=== PATIENT | female | born 1995 | race Caucasian/White ===

== ENCOUNTER → 2021-04-01 03:14 | Outpatient (CLI) | payer OTHER, SELFPAY ==
[2021-04-01 20:47] LABS: SARS-CoV-2 RNA PCR Negative
== END ==
PROVIDERS: Visit Provider Obstetrics & Gynecology Gynecologic Oncology
DX: Z01.812 Encounter for preprocedural laboratory examination (principal); Z20.822 Contact with and (suspected) exposure to COVID-19
CPT/HCPCS: C9803; U0003; U0005

== ENCOUNTER 2021-04-01 08:14 | Outpatient (CLI) | payer OTHER, SELFPAY ==
[2021-04-01 08:47] LABS: Basophils Percent Auto 0.4 % (0.2-1.2); Eosinophils Absolute Auto 0.2 K/mm3 (0-0.3); Eosinophils Percent Auto 4.3 % (0-4.4); Hematocrit 39.9 % (37.0-47.0); Immature Granulocyte Absolute 0.02 K/mm3 (0.00-0.031); Immature Granulocyte Percent A 0.4 % (0-0.5); Lymphocytes Absolute Auto 1.42 K/mm3 (0.9-3.2); Lymphocytes Percent Auto 27.6 % (18.3-44.2); Mean Corpuscular HGB Conc 32.6 g/dl (32-36); Mean Corpuscular Hemoglobin 30.2 pg (26-34); Mean Corpuscular Volume 92.6 fl (80-100); Mean Platelet Volume 9.5 fl (7.4-10.4); Monocytes Absolute Auto 0.6 K/mm3 (0.1-0.6); Monocytes Percent Auto 10.7 % (2.6-8.5); Neutrophils Absolute Auto 2.9 K/mm3 (1.3-6.7); Neutrophils Percent Auto 56.6 % (45.5-73.1); Platelet Count Result 222 k/mm3 (150-375); Red Blood Count 4.31 M/mm3 (4.2-5.4); Red Cell Distribution Width 13.6 % (11.5-14.5); White Blood Count 5.1 K/mm3 (4.5-10.0)
== END 2021-04-01 08:15 | disposition home or self-care (01) ==
PROVIDERS: Visit Provider Obstetrics & Gynecology Gynecologic Oncology
DX: Z01.812 Encounter for preprocedural laboratory examination (principal)
CPT/HCPCS: 36415; 85025; 86850; 86900; 86901; C9803; U0003; U0005

== ENCOUNTER 2021-04-04 01:51 | Day surgery (SDC) | payer OTHER, SELFPAY ==
[2021-04-01 09:10] VITALS: BMI 30.2
[2021-04-04] VITALS (9 sets, daily range): BP systolic 96–121; BP diastolic 52–79; PULSE 57–84; RESP 10–16; TEMP 36.1–36.9; O2SAT 99–100; BMI 32.0
--- NOTE | 2021-04-04 10:50 | P.PNAN_ITS ---
Anes - Initial Pre Proc Eval Procedure: Operation Date: 04/04/21 12:00 Proposed Procedures p Diagnostic Laparoscopy, Left Salpingectomy, Hysteroscopy Dilation and Curettage, Endometrial Ablation, Novasure, Nexplanon Removal Left Arm - Kari Granados DO s Hysteroscopy Dilation and Curettage, Endometrial Ablation, Novasure, Nexplanon Removal Left Arm - Kari Granados DO Date/Time: 04/04/21 10:50 Surgeon: Kari Granados DO Pre Op Diagnosis: desires sterlization, abnormal uterine bleeding Patient Data Age: 26 Gender: F Height: 1.6 m Weight: 77.3 kg Allergies Allergy/AdvReac Type Severity Reaction Status Date / Time No Known Allergies Allergy Verified 04/04/21 10:31 Home Medications Medication Instructions Recorded Confirmed Type buspirone 7.5 mg PO TID 04/01/21 04/04/21 History cefuroxime axetil 500 mg PO BID 04/01/21 04/04/21 History loratadine 10 mg PO HS 04/01/21 04/04/21 History Patient hx anesthesia problems: none Family hx anesthesia problems: none [facility] Past Medical History Medical History (Updated 04/04/21 @ 10:52 by Josh Mckee MD) Anxiety Factor V Leiden Obesity Social History Social History Smoking status: Never smoker Substance use: current Substance use type: marijuana Other substance usage details: Daily Living arrangements: alone Spiritual care concerns: No Anes - Eval Final PreProcedure Day of Procedure 04/04/21 10:50 Patient weight: obese Heart: regular rate and rhythm Lungs: clear to auscultation and normal air movement Airway: Mallampati scale class II Neurological: alert and oriented Last oral intake: >/= 8 hours ASA classification: II Emergent: no Anesthetic plan: proceed Anesthesia type and monitoring: general ETT Informed Consent: The patient's anesthetic plan and its attendant risks and benefits were discussed with the patient/family/POA. Questions were solicited and answers provided to the satisfaction of the patient/family/POA.
[2021-04-04] MEDS: LACTATED RINGERS 1,000 ML 30 ML IV CONT ×2 (10:52→14:13)
[2021-04-04] MEDS: HEPARIN SODIUM 5,000 UNITS/ML VIAL 5000 UNITS SUB-Q (11:00)
--- NOTE | 2021-04-04 11:13 | PM.IMHP ---
H&P: HPI History of Present Illness Date/Time: 04/04/21 11:13 Chief Complaint: I'm here for my surgery Narrative: She presents for nexplanon removal, diagnostic laparoscopy, left salpingectomy, hysteroscopy, D&C, ablation. Review of Systems Review of Systems: All systems reviewed & are unremarkable except as noted in HPI and below PMFSH Past Medical History Medical History (Updated 04/04/21 @ 11:18 by Kari Granados DO) Anxiety Factor V Leiden Irregular menstrual bleeding Menorrhagia Obesity Social History Social History Smoking status: Never smoker Substance use: current Substance use type: marijuana Other substance usage details: Daily Living arrangements: alone Spiritual care concerns: No Meds Home Medications and Allergies Home Medications Medication Instructions Recorded Confirmed Type buspirone 7.5 mg PO TID 04/01/21 04/04/21 History cefuroxime axetil 500 mg PO BID 04/01/21 04/04/21 History loratadine 10 mg PO HS 04/01/21 04/04/21 History Allergies Allergy/AdvReac Type Severity Reaction Status Date / Time No Known Allergies Allergy Verified 04/04/21 10:31 Exam Narrative: See exam notes from office. Assessment and Plan Assessment and plan (1) Factor V Leiden: Code(s): D68.51 - Activated protein C resistance Status: Acute (2) Encounter for sterilization: Code(s): Z30.2 - Encounter for sterilization Status: Acute (3) Menorrhagia: Code(s): N92.0 - Excessive and frequent menstruation with regular cycle Status: Acute (4) Irregular menstrual bleeding: Code(s): N92.6 - Irregular menstruation, unspecified Status: Acute Additional Plan Removal of Nexplanon, diagnostic laparoscopy, left salpingectomy, hysteroscopy, D&C, Novasure ablation
[2021-04-04] MEDS: ACETAMINOPHEN 500 MG TABLET 1000 MG PO (11:40)
--- NOTE | 2021-04-04 12:52 | WPDHPUPDATE1 ---
History and Physical Update Update Date/Time: 04/04/21 12:52 History and Physical has been reviewed, including an updated exam of the patient. There are NO changes in the patient's condition. Risks, benefits, and alternatives have been discussed and questions answered. Patient agrees to proceed with procedure.
--- NOTE | 2021-04-04 14:01 | SUR.OPER ---
Novasure: 4.5 Length, 2.6 Width, 64 [place], 65 Seconds
[2021-04-04] MEDS: BUPIVACAINE/EPINEPHRINE 0.25% 50 ML VIAL 10 ML INFILTRATE (14:14)
--- NOTE | 2021-04-04 14:16 | P.OP_ITS ---
Procedure Note - Detailed Date of Procedure 04/04/21 Pre-op Diagnosis desires sterlization, Menorrhagia Post-op Diagnosis other (Desires sterilization, menorrhagia, right ovarian cyst) Procedure Performed Diagnostic laparoscopy, right ovarian cyst drainage, left salpingectomy, nexplanon removal from left arm, hysteroscopy, D&C, Novasure ablation Surgeon Kari Granados DO [employer] Team Member Mahin, Duglas and Josie Anesthesia general Indications See pre op diagnoses above Findings Normal appearing vulva and vaginal canal. Good descensus of cervix. The uterine cavity was unremarkable, both tubal ostia were visualized. Within the abdomen, the uterus, left tube and ovaries appeared normal. There was a simple cyst on the right ovary. The liver and gallbladder were grossly normal. Description of Procedure The patient was taken to the operating room where she was prepped and draped in the normal, sterile fashion in dorsal lithotomy position. No preoperative antibiotics were indicated. A timeout was performed. A speculum was placed in the vagina and the cervix visualized. The anterior lip was grasped with a tenaculum and an [place] uterine manipulator was placed. A foster was placed. Gl oves were changed and attention was turned to the abdomen. The skin under the umbilicus was grasped with two penetrating towel clamps. The area was injected with local and an incision was made. A Veress needle was placed and the skin of the abdomen elevated. A saline water droplet test was performed and confirmed intraperitoneal placement. CO2 insufflation was started but the filling pressure was too high so I removed the Veress needled used an Optiview trocar instead. The gas was restarted when the intraperitoneal cavity was reached. The patient was placed in steep Trendelenburg position. Additional trocar sites were identified, injected and incised in the right and left lower quadrants. 5 mm trocars were introduced under direct visualization. The uterus was elevated. Some fimbriae remnants were cauterized on the right side. The left tube was elevated, cauterized and transected then handed off through the assistant professor of philosophy port. The cyst on the right ovary was drained. This fluid was suctioned out of the abdomen. There were some adhesions from the left sidewall to the sigmoid colon, these were taken down with blunt and sharp dissection using the Ligasure. The instruments were removed and CO2 was allowed to escape from the abdomen. The trocar sites were closed using 4-0 monocryl in a subcuticular fashion and covered with steri strips. The patient was taken out of Trendelenburg position. The [place] manipulator was removed and the cervix was dilated up. The hysteroscope was introduced and the uterine cavity appeared unremarkable. The scope was removed and a sharp curettage was performed of the cavity. These curettings were handed off. The Novasure was then introduced following measurment of the uterus and cervix. Uterine length was 4.5 cm, width was 2.6 cm. The device was activated for 65 seconds at 64 alexander. The Novasure was removed. All instruments were removed from the vagina. The foster was taken out. The patient was taken to the recovery room in stable condition. All instrument and sponge counts were correct at the conclusion of the procedure. Estimated Blood Loss 2 IV Fluids 1,000 Urine Output 800 Drains No Packing No Pathology yes Complications None Condition stable Disposition PACU
[2021-04-04] MEDS: fentaNYL CITRATE INJ (*CRX) 100 MCG/2 ML VIAL 25 MCG IV PUSH ×6 (14:24→14:57)
[2021-04-04] MEDS: oxyCODONE HCL (*CRX) 5 MG TAB IR PO (15:23)
--- NOTE | 2021-04-04 16:11 | SUR.PHASEII ---
pt informed about careful tylenol consumption
== END 2021-04-04 15:45 | disposition home or self-care (01) ==
PROVIDERS: Visit Provider Obstetrics & Gynecology Gynecologic Oncology
PROC: (CPT 49320; principal; 2021-04-04 12:00)
PROC: 0U5B8ZZ Destruction of Endometrium, Via Natural or Artificial Opening Endoscopic (ICD-10-PCS; CPT 58563; 2021-04-04 12:00)
DX: Z30.2 Encounter for sterilization (principal); N92.0 Excessive and frequent menstruation with regular cycle; N83.291 Other ovarian cyst, right side; Z30.49 Encounter for surveillance of other contraceptives; D68.51 Activated protein C resistance; F41.9 Anxiety disorder, unspecified; E66.9 Obesity, unspecified; Z68.32 Body mass index [BMI] 32.0-32.9, adult
CPT/HCPCS: 58661; 58563; 58662; 11982; 88302; 88305; A9270; J1100; J1644; J2250; J2405; J2704; J2710; J3010; J7030; J7120